=== PATIENT | female | born 1945 | race Two or more races ===

== ENCOUNTER 2024-09-04 10:07 | Inpatient (IN) | payer OTHER ==
[~2024-09-04] VITALS: Ht 162.6 cm; Wt 66.2 kg
[2024-09-04 10:55] LABS: BASOPHILS % (AUTO) 0.5 % (0.0-2.0); EOSINOPHILS # (AUTO) 0.1 K/uL (0.0-0.7); EOSINOPHILS % (AUTO) 2.5 % (0.0-6.0); HEMATOCRIT 38 % (33-45); HEMOGLOBIN 13.1 g/dL (11.5-14.8); LYMPHOCYTES # (AUTO) 1.3 K/uL (0.8-4.8); LYMPHOCYTES % (AUTO) 25.4 % (20.0-44.0); MEAN CORPUSCULAR HEMOGLOBIN 33 PG (26.0-33.0); MEAN CORPUSCULAR HGB CONC 34 g/dl (31.0-36.0); MEAN CORPUSCULAR VOLUME 96 fL (82-100); MONOCYTES # (AUTO) 0.3 K/uL (0.1-1.30); MONOCYTES % (AUTO) 5.8 % (2.0-12.0); NEUTROPHILS # (AUTO) 3.4 K/uL (1.8-8.9); NEUTROPHILS % (AUTO) 65.8 % (43.0-81.0); PLATELET COUNT (AUTO) 309 K/uL (150-450); RED CELL DISTRIBUTION WIDTH 13.1 % (11.5-15.0); WHITE BLOOD COUNT (AUTO) 5.2 K/uL (4.3-11.0)
[2024-09-04 11:01] LABS: CALCIUM, SERUM 9.3 mg/dL (8.5-10.1); CARBON DIOXIDE 30 mmol/L (21-32); CHLORIDE 106 mmol/L (98-107); CREATININE 0.6 mg/dL (0.6-1.3); GLUCOSE 81 mg/dL (74-106); POTASSIUM 3.8 mmol/L (3.5-5.1); SODIUM SERUM 143 mmol/L (136-145); UREA NITROGEN, BLOOD 9 mg/dL (7-18)
[2024-09-04 11:12] LABS: ALANINE AMINOTRANSFERASE 28 U/L (12-78); ALBUMIN 3.8 g/dL (3.4-5.0); ALKALINE PHOSPHATASE 95 U/L (46-116); ASPARTATE AMINOTRANSFERASE 20 U/L (15-37); BILIRUBIN,DIRECT 0.2 mg/dL (0.0-0.2); NT-PRO BNP 102 pg/mL (0-125)
[2024-09-04] MEDS ORDERED: ASPIRIN 325 MG TABLET ONE (11:22)
[2024-09-04] MEDS: ASPIRIN 325 MG TABLET PO ONE (11:30)
[2024-09-04] MEDS ORDERED: ACETAMINOPHEN ES 500 MG TABLET ONE (12:12)
[2024-09-04] MEDS: ACETAMINOPHEN ES 500 MG TABLET PO ONE (12:13)
[2024-09-04] MEDS ORDERED: MAG HYDROX/AL HYDROX/SIMETH 30 ML UDC PO PRN (14:00)
[2024-09-04] MEDS ORDERED: ACETAMINOPHEN 325 MG TABLET PO PRN (14:00)
[2024-09-04] MEDS ORDERED: Z GUARD REMEDY 4 OZ OINT TP PRN (14:00)
[2024-09-04] MEDS ORDERED: ONDANSETRON HCL/PF 4 MG/2 ML VIAL IVP PRN (14:00)
[2024-09-04] MEDS ORDERED: MAGNESIUM HYDROXIDE 30 ML UDC PO PRN (14:00)
[2024-09-04 16:00] VITALS: BP 157/98; TEMP 97.8; O2SAT 97
[2024-09-04] MEDS: METOPROLOL TARTRATE 25 MG TABLET PO SCH (16:38)
[2024-09-04] MEDS ORDERED: MECL-159 PO (17:52)
[2024-09-04] MEDS ORDERED: FAMO40TA7 PO (17:52)
[2024-09-04] MEDS ORDERED: PROP10DR4 EACHEYE (17:52)
[2024-09-04] MEDS ORDERED: ASPI-1169 PO (17:52)
[2024-09-04] MEDS ORDERED: AMIT25TA9 PO (17:52)
[2024-09-04] MEDS ORDERED: LOSA25TA27 PO (17:52)
[2024-09-04] MEDS ORDERED: IPRA12.9 INH (17:52)
[2024-09-04] MEDS ORDERED: ALEN70TA80 PO (17:52)
[2024-09-04] MEDS ORDERED: ACET-637 PO (17:52)
[2024-09-04] MEDS ORDERED: [UNRECOGNIZED DRUG - CODE] PO (17:52)
[2024-09-04] MEDS ORDERED: DICL100G34 TP (17:52)
[2024-09-04] MEDS ORDERED: CALC-883 PO (17:52)
[2024-09-04] MEDS ORDERED: MECLIZINE HCL 25 MG TABLET PO PRN (18:30)
[2024-09-04 20:00] VITALS: BP 130/85; TEMP 98.1; O2SAT 95
[2024-09-04] MEDS: ENOXAPARIN SODIUM 40 MG/0.4 ML DISP.SYRIN SQ SCH (20:15)
[2024-09-04] MEDS: AMITRIPTYLINE HCL 25 MG TABLET PO SCH (21:19)
[2024-09-05] VITALS: BP 140/92; TEMP 98.6; O2SAT 98
[2024-09-05 04:00] VITALS: BP 156/83; TEMP 98.4; O2SAT 100
[2024-09-05 06:44] LABS: EOSINOPHILS # (AUTO) 0.1 K/uL (0.0-0.7); EOSINOPHILS % (AUTO) 1.3 % (0.0-6.0); HEMATOCRIT 28 % (33-45); HEMOGLOBIN 12.2 g/dL (11.5-14.8); LYMPHOCYTES # (AUTO) 1.6 K/uL (0.8-4.8); LYMPHOCYTES % (AUTO) 38.6 % (20.0-44.0); MEAN CORPUSCULAR HEMOGLOBIN 42 PG (26.0-33.0); MEAN CORPUSCULAR HGB CONC 43 g/dl (31.0-36.0); MEAN CORPUSCULAR VOLUME 98 fL (82-100); MONOCYTES # (AUTO) 0.4 K/uL (0.1-1.30); MONOCYTES % (AUTO) 8.9 % (2.0-12.0); NEUTROPHILS # (AUTO) 2.2 K/uL (1.8-8.9); NEUTROPHILS % (AUTO) 51.2 % (43.0-81.0); PLATELET COUNT (AUTO) 265 K/uL (150-450); RED BLOOD CELL COUNT(AUTO) 2.88 MIL/uL (4.0-5.2); RED CELL DISTRIBUTION WIDTH 13.2 % (11.5-15.0); WHITE BLOOD COUNT (AUTO) 4.3 K/uL (4.3-11.0)
[2024-09-05 06:58] LABS: CALCIUM, SERUM 8.9 mg/dL (8.5-10.1); CARBON DIOXIDE 24 mmol/L (21-32); CHLORIDE 110 mmol/L (98-107); CREATININE 0.6 mg/dL (0.6-1.3); GLUCOSE 89 mg/dL (74-106); MAGNESIUM 1.9 mg/dL (1.8-2.4); PHOSPHORUS 3.6 mg/dL (2.5-4.9); SODIUM SERUM 143 mmol/L (136-145); UREA NITROGEN, BLOOD 14 mg/dL (7-18)
[2024-09-05 08:00] VITALS: BP 132/83; TEMP 98.1; O2SAT 98
[2024-09-05] MEDS: LOSARTAN POTASSIUM 25 MG TABLET PO SCH (08:53)
[2024-09-05] MEDS: ASPIRIN 81 MG TAB.CHEW PO SCH (08:54)
[2024-09-05] MEDS: ATORVASTATIN 10 MG TABLET PO SCH (08:55)
[2024-09-05] MEDS: METOPROLOL TARTRATE 25 MG TABLET PO SCH (08:56)
[2024-09-05] MEDS ORDERED: ASPIRIN 81 MG TAB.CHEW PO SCH (09:00)
[2024-09-05 09:05] LABS: BASOPHILS % (MANUAL) 0 % (0.0-2.0); EOSINOPHILS % (MANUAL) 4 % (0-4); LYMPHOCYTES % (MANUAL) 35 % (16-48); MONOCYTES % (MANUAL) 6 % (0-11.0); NEUTROPHILS % (MANUAL) 55 (42-76); PLATELET ESTIMATE ADEQUATE
[2024-09-05 09:06] LABS: ROULEAUX 1+
[2024-09-05 09:18] LABS: CHOLESTEROL 128 mg/dL (<200); HDL CHOLESTEROL 46 mg/dL (40-60); LDL 68 mg/dL (0-99); TRIGLYCERIDES 88 mg/dL (30-150)
[2024-09-05 12:00] VITALS: BP 132/87; TEMP 98.2; O2SAT 96
[2024-09-05] MEDS ORDERED: IV NS 0.9% 250 ML IV ONE ×2 (15:15→16:00)
[2024-09-05] MEDS ORDERED: IOHEXOL-350 100 ML VIAL IV ONE ×2 (15:15→16:00)
[2024-09-05] MEDS ORDERED: NITROGLYCERIN 0.4 MG/TAB BOTTLE ONE (15:38)
[2024-09-05] MEDS ORDERED: METOPROLOL TARTRATE INJ 5 MG/5 ML AMPUL ONE ×3 (15:38→16:02)
[2024-09-05] MEDS: METOPROLOL TARTRATE INJ 5 MG/5 ML AMPUL IVP PRN (15:40)
[2024-09-05] MEDS: NITROGLYCERIN 0.4 MG/TAB BOTTLE SL ONE (15:55)
[2024-09-05 16:00] VITALS: BP 152/79; TEMP 98.1; O2SAT 99
[2024-09-05 17:24] VITALS: BP 152/79
[2024-09-09] MEDS ORDERED: ALENDRONATE 70 MG TABLET PO SCH (06:30)
== END 2024-09-05 21:43 | disposition home or self-care (01) | DRG 198 ==
LOC: ER 10:12 → TELE1 15:22
PROVIDERS: ADMIT Internal Medicine; ATTEND Internal Medicine
DX: I20.0 Unstable angina (principal); E78.5 Hyperlipidemia, unspecified; I10 Essential (primary) hypertension; J45.909 Unspecified asthma, uncomplicated
CPT/HCPCS: 36415; 71045-TC; 75574; 80048-TC; 80061-TC; 80076-TC; 83735-TC; 83880; 84100-TC; 84484-TC; 85025-TC; 93307-TC; G0378; J1650; J3490; J7050; Q9967